=== PATIENT | male | born 1945 | race Caucasian/White ===

== ENCOUNTER 2021-02-09 10:46 | Inpatient (IN) ==
[2021-02-10] MEDS ORDERED: Clotrimazole 1% CRM 15 GM TUBE TP PRN (19:01)
[2021-02-10] MEDS ORDERED: Nitroglycerin 0.4 MG TAB.SUBL SL PRN (19:01)
[2021-02-11] MEDS: *HR* OxyCODONE/APAP 5/325 TABLET PO PRN ×3 (00:49→21:41)
[2021-02-11 05:01] LABS: Basophils # 0.1 K/mcL (0.0-0.2); Basophils % 0.4 %; Eosinophils # 0.5 K/mcL (0.0-0.6); Eosinophils % 3.6 %; Hematocrit 29.8 % (37.5-50.1); Hemoglobin 9.2 g/dL (12.9-16.9); Immature Granulocytes % 1.9 % (0-4); Lymphocytes # 1.2 K/mcL (0.6-4.6); Lymphocytes % 8.7 %; Mean Corpuscular HGB Conc 30.9 g/dL (31.6-35.5); Mean Corpuscular Hemoglobin 27.7 pg (28.0-33.3); Mean Corpuscular Volume 89.8 fL (83.0-100.0); Mean Platelet Volume 9.7 fL (9.4-12.4); Monocytes # 1.5 K/mcL (0.0-1.3); Monocytes % 11.2 %; Neutrophils # 9.9 K/mcL (1.6-8.9); Platelet Count 163 K/mcL (140-400); Red Blood Count 3.32 M/mcL (4.19-5.50); Red Cell Distribution Width 15.3 % (11.5-14.5); Segmented Neutrophils % 74.2 %; White Blood Count 13.4 K/mcL (4.3-11.1)
[2021-02-11 05:18] LABS: Alanine Aminotransferase 24 Units/L (7-52); Albumin 3.1 g/dL (3.5-5.7); Albumin/Globulin Ratio 1.2 (1.1-2.2); Alkaline Phosphatase 200 Units/L (34-104); Aspartate Amino Transferase 33 Units/L (13-39); BUN/Creatinine Ratio 21 (6-26); Bilirubin,Direct 0.2 mg/dL (0.0-0.2); Bilirubin,Indirect 0.5 mg/dL (0.0-1.0); Bilirubin,Total 0.7 mg/dL (0.3-1.0); Blood Urea Nitrogen 19 mg/dL (8-23); Calcium 8.1 mg/dL (8.6-10.3); Carbon Dioxide 28 mEq/L (23-29); Chloride 103 mEq/L (98-107); Globulin 2.5 g/dL (2.4-3.5); Glucose 117 mg/dL (70-105); Magnesium 1.8 mg/dL (1.6-2.6); Osmolality,Calculated 291 (280-300); Potassium 3.7 mEq/L (3.5-5.1); Sodium 139 mEq/L (136-145); Total Protein 5.6 g/dL (6.4-8.9); eGFR For African Americans > 60 (> 60); eGFR For Non-African Americans > 60 (> 60)
[2021-02-11] MEDS: Isosorbide MONOnitrate (24 HR) 30 MG TAB.ER.24H PO SCH (10:07)
[2021-02-11] MEDS: *HR* Amiodarone 200 MG TABLET PO SCH (10:08)
[2021-02-11] MEDS: Folic Acid 1 MG TABLET PO SCH (10:08)
[2021-02-11] MEDS: Cholecalciferol (D-3) 1,000 UNIT (25MCG) TABLET PO SCH (10:08)
[2021-02-11] MEDS: Aspirin Enteric Coated 325 MG Tablet PO SCH (10:08)
[2021-02-11] MEDS: Furosemide 20 MG TABLET PO SCH (13:51)
[2021-02-11] MEDS ORDERED: traZODone 50 MG TABLET PO PRN (15:10)
[2021-02-11] MEDS ORDERED: haloperidoL 1 MG TABLET PO PRN (15:11)
[2021-02-11] MEDS: Melatonin 3 MG TABLET PO PRN (21:41)
[2021-02-11] MEDS: Ondansetron ODT 4 MG TAB.RAPDIS SL PRN (21:43)
[2021-02-12] MEDS: Isosorbide MONOnitrate (24 HR) 30 MG TAB.ER.24H PO SCH (09:36)
[2021-02-12] MEDS: Aspirin Enteric Coated 325 MG Tablet PO SCH (09:36)
[2021-02-12] MEDS: Furosemide 20 MG TABLET PO SCH (09:36)
[2021-02-12] MEDS: *HR* Amiodarone 200 MG TABLET PO SCH (09:36)
[2021-02-12] MEDS: Folic Acid 1 MG TABLET PO SCH (09:37)
[2021-02-12] MEDS: Cholecalciferol (D-3) 1,000 UNIT (25MCG) TABLET PO SCH (09:37)
[2021-02-12] MEDS: *HR* OxyCODONE/APAP 5/325 TABLET PO PRN (09:37)
[2021-02-12] MEDS: haloperidoL 1 MG TABLET PO SCH (20:08)
[2021-02-12] MEDS: Melatonin 3 MG TABLET PO PRN (20:09)
[2021-02-12] MEDS: traZODone 50 MG TABLET PO SCH (20:09)
[2021-02-13 06:18] LABS: Hemoglobin 9.5 g/dL (12.9-16.9); Mean Corpuscular HGB Conc 30.6 g/dL (31.6-35.5); Mean Corpuscular Hemoglobin 27.1 pg (28.0-33.3); Mean Corpuscular Volume 88.3 fL (83.0-100.0); Mean Platelet Volume 9.7 fL (9.4-12.4); Platelet Count 241 K/mcL (140-400); Red Blood Count 3.51 M/mcL (4.19-5.50); Red Cell Distribution Width 15.3 % (11.5-14.5); White Blood Count 13.4 K/mcL (4.3-11.1)
[2021-02-13 06:46] LABS: Alanine Aminotransferase 21 Units/L (7-52); Albumin 3.2 g/dL (3.5-5.7); Albumin/Globulin Ratio 1.2 (1.1-2.2); Alkaline Phosphatase 214 Units/L (34-104); Aspartate Amino Transferase 23 Units/L (13-39); BUN/Creatinine Ratio 17 (6-26); Bilirubin,Total 0.8 mg/dL (0.3-1.0); Blood Urea Nitrogen 18 mg/dL (8-23); Calcium 8.1 mg/dL (8.6-10.3); Carbon Dioxide 27 mEq/L (23-29); Chloride 100 mEq/L (98-107); Globulin 2.6 g/dL (2.4-3.5); Glucose 110 mg/dL (70-105); Osmolality,Calculated 285 (280-300); Potassium 3.6 mEq/L (3.5-5.1); Sodium 136 mEq/L (136-145); Total Protein 5.8 g/dL (6.4-8.9); eGFR For African Americans > 60 (> 60); eGFR For Non-African Americans > 60 (> 60)
[2021-02-13] MEDS: *HR* OxyCODONE/APAP 5/325 TABLET PO PRN (08:22)
[2021-02-13] MEDS: Aspirin Enteric Coated 325 MG Tablet PO SCH (08:22)
[2021-02-13] MEDS: Furosemide 20 MG TABLET PO SCH (08:22)
[2021-02-13] MEDS: Isosorbide MONOnitrate (24 HR) 30 MG TAB.ER.24H PO SCH (08:22)
[2021-02-13] MEDS: Cholecalciferol (D-3) 1,000 UNIT (25MCG) TABLET PO SCH (08:22)
[2021-02-13] MEDS: Folic Acid 1 MG TABLET PO SCH (08:22)
[2021-02-13] MEDS: haloperidoL 1 MG TABLET PO SCH ×2 (08:23→20:08)
[2021-02-13] MEDS: *HR* Amiodarone 200 MG TABLET PO SCH (08:23)
[2021-02-13] MEDS: Melatonin 3 MG TABLET PO PRN (20:10)
[2021-02-13] MEDS: traZODone 50 MG TABLET PO SCH (20:10)
[2021-02-14] MEDS: Furosemide 20 MG TABLET PO SCH (09:02)
[2021-02-14] MEDS: haloperidoL 1 MG TABLET PO SCH ×2 (09:02→20:58)
[2021-02-14] MEDS: Folic Acid 1 MG TABLET PO SCH (09:02)
[2021-02-14] MEDS: *HR* Amiodarone 200 MG TABLET PO SCH (09:02)
[2021-02-14] MEDS: Cholecalciferol (D-3) 1,000 UNIT (25MCG) TABLET PO SCH (09:02)
[2021-02-14] MEDS: Isosorbide MONOnitrate (24 HR) 30 MG TAB.ER.24H PO SCH (09:02)
[2021-02-14] MEDS: Aspirin Enteric Coated 325 MG Tablet PO SCH (09:03)
[2021-02-14] MEDS: traZODone 50 MG TABLET PO SCH (20:58)
[2021-02-14] MEDS: Melatonin 3 MG TABLET PO PRN (20:59)
[2021-02-15] MEDS: *HR* Amiodarone 200 MG TABLET PO SCH (08:10)
[2021-02-15] MEDS: Isosorbide MONOnitrate (24 HR) 30 MG TAB.ER.24H PO SCH (08:10)
[2021-02-15] MEDS: Cholecalciferol (D-3) 1,000 UNIT (25MCG) TABLET PO SCH (08:10)
[2021-02-15] MEDS: Aspirin Enteric Coated 325 MG Tablet PO SCH (08:10)
[2021-02-15] MEDS: Folic Acid 1 MG TABLET PO SCH (08:10)
[2021-02-15] MEDS: haloperidoL 1 MG TABLET PO SCH ×2 (08:11→20:10)
[2021-02-15] MEDS: Furosemide 20 MG TABLET PO SCH (08:11)
[2021-02-15] MEDS ORDERED: *HR* Methotrexate 2.5 MG TABLET PO SCH (09:00)
[2021-02-15] MEDS: traZODone 50 MG TABLET PO SCH (20:09)
[2021-02-15] MEDS: Nystatin Cream 15 GM TUBE TP SCH (20:09)
[2021-02-16] MEDS: Cholecalciferol (D-3) 1,000 UNIT (25MCG) TABLET PO SCH (07:57)
[2021-02-16] MEDS: Furosemide 20 MG TABLET PO SCH (07:57)
[2021-02-16] MEDS: Aspirin Enteric Coated 325 MG Tablet PO SCH (07:57)
[2021-02-16] MEDS: Isosorbide MONOnitrate (24 HR) 30 MG TAB.ER.24H PO SCH (07:57)
[2021-02-16] MEDS: Folic Acid 1 MG TABLET PO SCH (07:58)
[2021-02-16] MEDS: haloperidoL 1 MG TABLET PO SCH ×2 (07:58→20:47)
[2021-02-16] MEDS: *HR* Amiodarone 200 MG TABLET PO SCH (07:58)
[2021-02-16] MEDS: Nystatin Cream 15 GM TUBE TP SCH ×2 (08:00→20:53)
[2021-02-16] MEDS: traZODone 50 MG TABLET PO SCH (20:47)
[2021-02-17] MEDS: Ondansetron ODT 4 MG TAB.RAPDIS SL PRN (10:27)
[2021-02-17] MEDS: Isosorbide MONOnitrate (24 HR) 30 MG TAB.ER.24H PO SCH (10:27)
[2021-02-17] MEDS: Folic Acid 1 MG TABLET PO SCH (10:27)
[2021-02-17] MEDS: Nystatin Cream 15 GM TUBE TP SCH ×2 (10:27→20:45)
[2021-02-17] MEDS: Aspirin Enteric Coated 325 MG Tablet PO SCH (10:27)
[2021-02-17] MEDS: Cholecalciferol (D-3) 1,000 UNIT (25MCG) TABLET PO SCH (10:28)
[2021-02-17] MEDS: Furosemide 20 MG TABLET PO SCH (10:28)
[2021-02-17] MEDS: *HR* Amiodarone 200 MG TABLET PO SCH (10:28)
[2021-02-17] MEDS: haloperidoL 1 MG TABLET PO SCH (10:28)
[2021-02-17] MEDS: Melatonin 3 MG TABLET PO PRN (20:43)
[2021-02-17] MEDS: traZODone 50 MG TABLET PO SCH (20:44)
[2021-02-18] MEDS: Furosemide 20 MG TABLET PO SCH (09:10)
[2021-02-18] MEDS: *HR* Amiodarone 200 MG TABLET PO SCH (09:10)
[2021-02-18] MEDS: Aspirin Enteric Coated 325 MG Tablet PO SCH (09:11)
[2021-02-18] MEDS: Folic Acid 1 MG TABLET PO SCH (09:11)
[2021-02-18] MEDS: Cholecalciferol (D-3) 1,000 UNIT (25MCG) TABLET PO SCH (09:11)
[2021-02-18] MEDS: Isosorbide MONOnitrate (24 HR) 30 MG TAB.ER.24H PO SCH (09:11)
[2021-02-18] MEDS: Nystatin Cream 15 GM TUBE TP SCH ×2 (10:20→19:49)
[2021-02-18] MEDS: traZODone 50 MG TABLET PO SCH (19:47)
[2021-02-19] MEDS: Folic Acid 1 MG TABLET PO SCH (08:46)
[2021-02-19] MEDS: Cholecalciferol (D-3) 1,000 UNIT (25MCG) TABLET PO SCH (08:46)
[2021-02-19] MEDS: Isosorbide MONOnitrate (24 HR) 30 MG TAB.ER.24H PO SCH (08:46)
[2021-02-19] MEDS: *HR* Amiodarone 200 MG TABLET PO SCH (08:46)
[2021-02-19] MEDS: Furosemide 20 MG TABLET PO SCH (08:46)
[2021-02-19] MEDS: Aspirin Enteric Coated 325 MG Tablet PO SCH (08:47)
[2021-02-19 12:24] LABS: Hematocrit 34.4 % (37.5-50.1); Hemoglobin 10.5 g/dL (12.9-16.9); Mean Corpuscular HGB Conc 30.5 g/dL (31.6-35.5); Mean Corpuscular Hemoglobin 27.1 pg (28.0-33.3); Mean Corpuscular Volume 88.7 fL (83.0-100.0); Mean Platelet Volume 8.9 fL (9.4-12.4); Platelet Count 679 K/mcL (140-400); Red Blood Count 3.88 M/mcL (4.19-5.50); Red Cell Distribution Width 15.4 % (11.5-14.5); White Blood Count 10.7 K/mcL (4.3-11.1)
[2021-02-19 12:41] LABS: BUN/Creatinine Ratio 17 (6-26); Blood Urea Nitrogen 17 mg/dL (8-23); Calcium 8.7 mg/dL (8.6-10.3); Carbon Dioxide 27 mEq/L (23-29); Chloride 102 mEq/L (98-107); Glucose 111 mg/dL (70-105); Magnesium 1.8 mg/dL (1.6-2.6); Osmolality,Calculated 286 (280-300); Potassium 4.5 mEq/L (3.5-5.1); Sodium 137 mEq/L (136-145); eGFR For African Americans > 60 (> 60); eGFR For Non-African Americans > 60 (> 60)
[2021-02-19] MEDS: Nystatin Cream 15 GM TUBE TP SCH ×2 (15:38→21:24)
[2021-02-19] MEDS: traZODone 50 MG TABLET PO SCH (21:23)
[2021-02-20 07:23] VITALS: BP 121/71
[2021-02-20] MEDS: Isosorbide MONOnitrate (24 HR) 30 MG TAB.ER.24H PO SCH (08:36)
[2021-02-20] MEDS: Cholecalciferol (D-3) 1,000 UNIT (25MCG) TABLET PO SCH (08:36)
[2021-02-20] MEDS: Aspirin Enteric Coated 325 MG Tablet PO SCH (08:36)
[2021-02-20] MEDS: Furosemide 20 MG TABLET PO SCH (08:37)
[2021-02-20] MEDS: Folic Acid 1 MG TABLET PO SCH (08:37)
[2021-02-20] MEDS: *HR* Amiodarone 200 MG TABLET PO SCH (08:37)
[2021-02-20] MEDS: Nystatin Cream 15 GM TUBE TP SCH (10:44)
== END 2021-02-20 13:08 | disposition home health service (06) | DRG 949 ==
LOC: INPGRE 02-10 18:34
PROVIDERS: ADMIT Family Medicine; ATTEND Family Medicine